=== PATIENT | female | born 1980 | race Caucasian/White ===

== ENCOUNTER 2021-12-04 13:38 | Emergency (ER) | payer BC ==
[2021-12-04] MEDS ORDERED: Ketorolac Tromethamine 30 MG/ML VIAL ONE (14:42)
[2021-12-04] MEDS ORDERED: Boostrix 0.5 ML (Tdap) VIAL ONE (14:42)
[2021-12-04] MEDS ORDERED: Lidocaine 1% (PF) 30 ML VIAL ONE (15:25)
== END 2021-12-04 17:47 | disposition home or self-care (01) ==
LOC: ERS 13:38
DX: S61.301A Unspecified open wound of left index finger with damage to nail, initial encounter (principal); S61.305A Unspecified open wound of left ring finger with damage to nail, initial encounter; S61.303A Unspecified open wound of left middle finger with damage to nail, initial encounter; W26.9XXA Contact with unspecified sharp object(s), initial encounter; Z23 Encounter for immunization
CPT/HCPCS: 90471; 90715; 96372; J1885; J2001

== ENCOUNTER 2021-12-06 22:16 | Emergency (ER) | payer BC, SELFPAY | END 2021-12-06 23:47 | disposition home or self-care (01) | LOC: ERS 22:16 | DX: S60.411A Abrasion of left index finger, initial encounter (principal); S60.413A Abrasion of left middle finger, initial encounter; S60.415A Abrasion of left ring finger, initial encounter; W22.8XXA Striking against or struck by other objects, initial encounter | CPT/HCPCS: 99283 ==